=== PATIENT | female | born 1965 | race Caucasian/White ===

== ENCOUNTER 2022-04-23 08:50 | Day surgery (SDC) | payer BC, SELFPAY ==
[2022-04-23] VITALS (14 sets, daily range): BP systolic 136–158; BP diastolic 72–97; PULSE 53–74; RESP 12–18; TEMP 36.3–36.6; O2SAT 92–100; BMI 29.7
[2022-04-23] MEDS: SODIUM CHLORIDE 0.9 % (FLUSH) 10 ML SYRINGE IVF (09:10)
[2022-04-23] MEDS: LACTATED RINGERS 1000 ML 1,000 ML 100 ML IV (09:10)
--- NOTE | 2022-04-23 09:23 | SUR.PREOP ---
Patient provided home covid negative results to RN.
[2022-04-23] MEDS: CEFAZOLIN 1 GM inj IVP (11:40)
[2022-04-23] MEDS: BUPIVACAINE 0.5% 30 ML INJECTION (11:50)
--- NOTE | 2022-04-23 12:36 | P.GSOP_ITS ---
Operative Note Date of procedure: 04/23/22 Pre-op diagnosis: Biliary colic Post-op diagnosis: Same Type of Procedure: Laparoscopic cholecystectomy Indications: Patient is a 57-year-old female who presented to clinic with signs and symptoms consistent with biliary colic. I had a detailed conversation with the patient regarding the diagnosis of biliary colic. We discussed the treatment options including observation with diet modification and laparoscopic cholecystectomy. We discussed the risks of surgery (including but not limited to) the risks of bleeding, infection, injury to other structures in the abdomen including bile duct injury, bile leak and conversion to an open operation. We discussed the possibility that the patient's pain not improve with surgery. We discussed the possibility of permanent post-operative diarrhea that may require medical management. Additionally, the conceivably of complications requiring additional surgery or further hospitalization were also discussed including the risks of [place], respiratory failure, stroke and blood clots. The patient voiced an understanding of our conversation, had the opportunity to ask questions, agreed to accept the risks of surgery and asked that we proceed with surgery. Procedure Description: After discussing the risks and benefits of the procedure, the patient signed informed consent.? The operative site was marked and the patient was brought to the operating room and placed on the operating table in supine position.? Care was taken to pad the patient's pressure points.?? The patient was then intubated by anesthesia.?? The operative site was then prepped and draped in the usual sterile fashion.? A time-out was then performed. Entrance to the abdomen was gained via a 5 mm Visiport in the left upper quadrant. The abdomen was insufflated and briefly surveyed for signs of injury. There was none. 11 mm umbilical port was placed as well as 2 working ports along the right costal margin. Patient was then placed in reverse Trendelenburg position with the right side up. The gallbladder fundus was grasped and retracted cephalad. The infundibulum was grasped. A combination of hook cautery and blunt dissection was used to carefully dissect out the cystic duct and artery until they could clearly be seen entering the gallbladder without any intervening structures. The gallbladder was dissected off the cystic plate to achieve the critical view. Once this was achieved the cystic duct and artery were each clipped with 2 clips proximally and 1 clip distally and transected with the scissors. The gallbladder was then taken off of the liver bed. While the gallbladder was being taken off a small arterial branch within the gallb ladder fossa was visualized. A small clip was placed before it was ligated. After the gallbladder was completely taken off it was then removed from the abdomen using an Endo-Catch bag. The gallbladder bed was surveyed for hemostasis. The umbilical port fascia was closed with 0 Vicryl, 2 interrupted stitches via the Akhil-Lynnette. All other ports were removed under direct visualization. The skin was closed with absorbable subcuticular suture. Instrument sponge and needle counts were correct at the end of the case. The patient was then woken and transferred to the PACU in stable condition. Findings: Cholelithiasis Anesthesia: GETA Surgeon: Gissell Carlton MD Estimated blood loss (mL): 5 Specimen: Gallbladder Condition: stable Disposition: same day
--- NOTE | 2022-04-23 12:50 | W.ANESCHARGE ---
Anesthesia Charges Start Date/Time Anesthesia Start Date: 04/23/22 Anesthesia Start Time: 11:28 Stop Date/Time Anesthesia Stop Date: 04/23/22 Anesthesia Stop Time: 12:47
[2022-04-23] MEDS: fentaNYL 100 MCG/2 ML inj 50 MCG IVP ×2 (12:55→13:01)
[2022-04-23] MEDS: ONDANSETRON 2 MG/ML inj 4 MG IVP (13:55)
[2022-04-23] MEDS: hydrOXYzine pamoate 25 MG CAPSULE PO (14:22)
[2022-04-23] MEDS: METOCLOPRAMIDE HCL 5 MG/ML INJ 10 MG IVP (15:08)
== END 2022-04-23 15:26 | disposition home or self-care (01) ==
PROVIDERS: Visit Provider Surgery
PROC: 0FT44ZZ Resection of Gallbladder, Percutaneous Endoscopic Approach (ICD-10-PCS; CPT 47562; principal; 2022-04-23 09:15)
DX: K80.10 Calculus of gallbladder with chronic cholecystitis without obstruction (principal)
CPT/HCPCS: 47562; 00790; 88304; A9270; J0330; J0690; J1100; J2250; J2405; J2704; J2710; J2765; J3010; J3490; J7120